=== PATIENT | male | born 1950 | race Caucasian/White ===

== ENCOUNTER 2021-01-09 13:44 | Inpatient (IN) | payer MEDICARE ==
[~2021-01-09] VITALS: Ht 167.6 cm; Wt 79.4 kg
[~2021-01-09 13:44] MED LIST: ALLO300T2 PO; ASPI-1197 PO; FURO20TA4 PO; LEVO125 PO; POTA-202 PO; SIMV-43 PO; TEMA15CA PO
[2021-01-09] MEDS ORDERED: NITROGLYCERIN 1GM OINT 1 INCH/1GM TD ONE ×2 (13:58→14:19)
[2021-01-09] MEDS ORDERED: FUROSEMIDE 40MG VIAL ONE (13:59)
[2021-01-09 14:15] LABS: ABG BASE EXCESS -4.6 mmol/L (-2.0-3.0); ABG OXYGEN SATURATION 99.4 % (95.0-99.0); ABG PCO2 36 mmHg (35-48)
[2021-01-09 14:53] LABS: BASOPHILS % (AUTO) 0.4 % (0.0-5.0); EOSINOPHILS % (AUTO) 0.2 % (0.0-8.0); HEMATOCRIT 46.5 % (42-54); LYMPHOCYTES % (AUTO) 6.3 % (21.0-51.0); MEAN CORPUSCULAR HEMOGLOBIN 29.7 pg (27.0-33.0); MEAN CORPUSCULAR HGB CONC 32.7 g/dL (32.0-36.0); MEAN CORPUSCULAR VOLUME 90.8 fL (79-99); MONOCYTES % (AUTO) 3.1 % (3.0-13.0); NEUTROPHILS % (AUTO) 89.1 % (40.0-77.0); PLATELET COUNT (AUTO) 268 K/uL (130-400); RED BLOOD CELL COUNT(AUTO) 5.12 MIL/uL (4.50-6.20); RED CELL DISTRIBUTION WIDTH 17.4 % (11.0-15.5); WHITE BLOOD COUNT (AUTO) 15.2 K/uL (4.8-10.8)
[2021-01-09 14:59] LABS: POTASSIUM 3.4 mmol/L (3.5-5.1)
[2021-01-09 15:00] LABS: INR 1.11 (0.85-1.15)
[2021-01-09 15:00] LABS: APPEARANCE,URINE Cloudy (CLEAR); BILIRUBIN,URINE Negative (NEGATIVE); COLOR,URINE Dark Yellow (YELLOW); GLUCOSE, URINE (UA) Negative (NEGATIVE); KETONES,URINE Negative (NEGATIVE); LEUKOCYTE ESTERASE ,URINE Small (NEGATIVE); NITRATE,URINE Negative (NEGATIVE); OCCULT BLOOD,URINE Moderate (NEGATIVE); PROTEIN,URINE >=1000 mg/dL (NEGATIVE)
[2021-01-09] MEDS ORDERED: ONDANSETRON 4MG INJ IV PRN (15:00)
[2021-01-09] MEDS ORDERED: ZOLPIDEM TARTRATE 5 MG TAB PO PRN (15:00)
[2021-01-09] MEDS ORDERED: ACETAMINOPHEN 325 MG TAB PO PRN ×3 (15:00→16:45)
[2021-01-09] MEDS ORDERED: MORPHINE 2 MG SYG IV PRN (15:00)
[2021-01-09 15:01] LABS: PARTIAL THROMBOPLASTIN TIME 28.9 SEC (26.3-35.5)
[2021-01-09 15:04] LABS: ALBUMIN 3.1 g/dL (3.5-5.0); BILIRUBIN,TOTAL 0.9 mg/dL (0.2-1.0); TOTAL PROTEIN, SERUM 7.3 g/dL (6.0-8.3)
[2021-01-09 15:12] LABS: BACTERIA,URINE Few /HPF (None Seen); MUCUS,URINE Few LPF (None Seen); SQUAMOUS EPITHELIAL CELL,UR Few /HPF (0-2)
[2021-01-09 15:13] LABS: AMORPHOUS SEDIMENT,UR Moderate /LPF (None Seen)
[2021-01-09 15:13] LABS: TROPONIN I 0.06 ng/mL (0.00-0.06)
[2021-01-09] MEDS ORDERED: CEFTRIAXONE 1G VIAL IVP SCH (15:15)
[2021-01-09 15:19] LABS: B-TYPE NATRIURETIC PEPTIDE 4800 pg/mL (0-100)
[2021-01-09] MEDS ORDERED: MORPHINE 2 MG SYG IVP PRN (16:45)
[2021-01-09] MEDS ORDERED: POTASSIUM CHLORIDE 10% ELIXIR 20 MEQ/15 ML UDCUP PO PRN (16:45)
[2021-01-09] MEDS ORDERED: KCL 20 MEQ ERTAB PO PRN (16:45)
[2021-01-09] MEDS ORDERED: POTASSIUM CHLORIDE 20MEQ/100ML 100 ML IV PRN ×2 (16:45)
[2021-01-09] MEDS ORDERED: CLONIDINE HCL 0.1 MG TABLET PO PRN ×2 (16:45)
[2021-01-09] MEDS ORDERED: LACTULOSE 20 GM/30 ML UDCUP PO PRN (16:45)
[2021-01-09] MEDS ORDERED: MAGNESIUM 2GM PREMIX 50ML 50 ML IV PRN (16:45)
[2021-01-09] MEDS ORDERED: DEXTROSE 50%-WATER 50 ML DISP.SYRIN IV PRN (16:45)
[2021-01-09] MEDS ORDERED: GLUCAGON 1MG KIT 1 MG ML IM PRN (16:45)
[2021-01-09] MEDS ORDERED: LIDOCAINE HCL-MPF 1% 2ML VIAL IV PRN ×2 (16:45)
[2021-01-09] MEDS ORDERED: ONDANSETRON 4MG INJ IVP PRN (16:45)
[2021-01-09] MEDS ORDERED: ACETAMINOPHEN 650 MG SUPPOSITORY RC PRN (16:45)
[2021-01-09 17:46] LABS: TROPONIN I 0.08 ng/mL (0.00-0.06)
[2021-01-09] MEDS: [UNRECOGNIZED DRUG - REMARK] MISC SCH ×2 (18:30→22:30)
[2021-01-09] MEDS: METOPROLOL TARTRATE 25 MG TAB PO SCH (21:00)
[2021-01-09] MEDS ORDERED: ENOXAPARIN SODIUM 40 MG/0.4 ML SYRINGE SQ SCH (21:00)
[2021-01-09] MEDS: ENOXAPARIN SODIUM 80 MG/0.8 ML SQ SCH (21:00)
[2021-01-09] MEDS ORDERED: FAMOTIDINE 20MG VIAL IV SCH (21:00)
[2021-01-09 23:03] LABS: TROPONIN I 0.08 ng/mL (0.00-0.06)
[2021-01-10] VITALS (16 sets, daily range): BP systolic 85–110; BP diastolic 50–71
[2021-01-10] MEDS ORDERED: ENOXAPARIN SODIUM 80 MG/0.8 ML SQ ONE (01:18)
[2021-01-10 05:02] LABS: BASOPHILS % (AUTO) 0.4 % (0.0-5.0); EOSINOPHILS % (AUTO) 0.2 % (0.0-8.0); HEMATOCRIT 40.3 % (42-54); LYMPHOCYTES % (AUTO) 10.3 % (21.0-51.0); MEAN CORPUSCULAR HEMOGLOBIN 29.3 pg (27.0-33.0); MEAN CORPUSCULAR HGB CONC 32.3 g/dL (32.0-36.0); MEAN CORPUSCULAR VOLUME 90.8 fL (79-99); MONOCYTES % (AUTO) 8.4 % (3.0-13.0); NEUTROPHILS % (AUTO) 80.3 % (40.0-77.0); PLATELET COUNT (AUTO) 193 K/uL (130-400); RED BLOOD CELL COUNT(AUTO) 4.44 MIL/uL (4.50-6.20); RED CELL DISTRIBUTION WIDTH 17.2 % (11.0-15.5); WHITE BLOOD COUNT (AUTO) 11.1 K/uL (4.8-10.8)
[2021-01-10 05:22] LABS: B-TYPE NATRIURETIC PEPTIDE 2040 pg/mL (0-100)
[2021-01-10 05:30] LABS: CREATININE 1.8 mg/dL (0.5-1.5); PHOSPHORUS 3.8 mg/dL (2.5-4.9); THYROID STIMULATING HORMONE 1.22 uIU/mL (0.36-3.74); TROPONIN I 0.08 ng/mL (0.00-0.06)
[2021-01-10] MEDS ORDERED: CEFTRIAXONE 1G VIAL ONE (07:48)
[2021-01-10] MEDS ORDERED: METOPROLOL TARTRATE 25 MG TAB ONE (07:48)
[2021-01-10] MEDS: CEFTRIAXONE 1G VIAL IVP SCH (08:59)
[2021-01-10] MEDS: ENOXAPARIN SODIUM 80 MG/0.8 ML SQ SCH ×4 (09:00→20:54)
[2021-01-10] MEDS ORDERED: FUROSEMIDE 20MG VIAL IV SCH (09:00)
[2021-01-10] MEDS: METOPROLOL TARTRATE 25 MG TAB PO SCH (09:00)
[2021-01-10] MEDS ORDERED: ENOXAPARIN SODIUM 40 MG/0.4 ML SYRINGE SQ SCH (09:00)
[2021-01-10] MEDS ORDERED: APIX2.5T PO (09:47)
[2021-01-10] MEDS ORDERED: AMIO200 PO (09:47)
[2021-01-10] MEDS ORDERED: CARV6.25 PO (09:47)
[2021-01-10] MEDS ORDERED: FURO40TA5 PO (09:47)
[2021-01-10] MEDS ORDERED: ALBU2.5V2 NEB (09:47)
[2021-01-10] MEDS: FUROSEMIDE 20MG VIAL IV SCH (15:56)
[2021-01-10] MEDS: AMIODARONE 200 MG TABLET PO SCH (16:56)
[2021-01-10] MEDS: CARVEDILOL 6.25 MG TABLET PO SCH (20:54)
[2021-01-10] MEDS ORDERED: LISINOPRIL 2.5 MG TABLET PO SCH (21:00)
[2021-01-11] MEDS: FUROSEMIDE 20MG VIAL IV SCH ×2 (03:31→15:22)
[2021-01-11 03:57] VITALS: BP 99/58
[2021-01-11 05:14] LABS: CREATININE 1.8 mg/dL (0.5-1.5); POTASSIUM 3.5 mmol/L (3.5-5.1)
[2021-01-11 07:43] VITALS: BP 106/70
[2021-01-11] MEDS: CEFTRIAXONE 1G VIAL IVP SCH (08:00)
[2021-01-11] MEDS: CARVEDILOL 6.25 MG TABLET PO SCH (08:01)
[2021-01-11] MEDS: AMIODARONE 200 MG TABLET PO SCH (08:01)
[2021-01-11] MEDS: ENOXAPARIN SODIUM 80 MG/0.8 ML SQ SCH (08:01)
[2021-01-11 09:02] LABS: CHOLESTEROL 220 mg/dL (<200); HDL CHOLESTEROL 141 mg/dL (29-71); LDL DIRECT 143 mg/dL (0-99); TRIGLYCERIDES 92 mg/dL (30-200)
[2021-01-11 11:43] VITALS: BP 90/51
[2021-01-11] MEDS ORDERED: PERFLUTREN PROTEIN-A MICROSPHR 0.22 MG/ML VIAL IV SCH (15:00)
[2021-01-11] MEDS ORDERED: FURO40TA5 PO (15:04)
[2021-01-11] MEDS ORDERED: LISI2.5T13 PO (15:04)
[2021-01-11] MEDS ORDERED: SPIR25TA6 PO (15:04)
[2021-01-11] MEDS ORDERED: ATOR40TA71 PO (15:07)
[2021-01-11 15:31] VITALS: BP 87/53
[2021-01-11 15:50] VITALS: BP 101/65
[2021-01-11] MEDS ORDERED: ATORVASTATIN 40 MG TABLET PO SCH (21:00)
== END 2021-01-11 17:00 | disposition home or self-care (01) | DRG 291 ==
LOC: EDH 13:44 → INTOOBSV 14:47 → EDHIP 14:47 → OBSVTOIN 14:47 → 2DH 01-10 08:13 → 4CH 01-10 18:18
PROVIDERS: ADMIT Internal Medicine Critical Care Medicine; ATTEND Internal Medicine Critical Care Medicine
PROC: 5A09357 Assistance with Respiratory Ventilation, Less than 24 Consecutive Hours, Continuous Positive Airway Pressure (ICD-10-PCS; principal; 2021-01-09)
PROC: 5A09357 Assistance with Respiratory Ventilation, Less than 24 Consecutive Hours, Continuous Positive Airway Pressure (ICD-10-PCS; 2021-01-10)
DX: I13.0 Hypertensive heart and chronic kidney disease with heart failure and stage 1 through stage 4 chronic kidney disease, or unspecified chronic kidney disease (principal); J96.21 Acute and chronic respiratory failure with hypoxia; I50.23 Acute on chronic systolic (congestive) heart failure; N17.9 Acute kidney failure, unspecified; N39.0 Urinary tract infection, site not specified; E03.9 Hypothyroidism, unspecified; I42.0 Dilated cardiomyopathy; E11.22 Type 2 diabetes mellitus with diabetic chronic kidney disease; E78.5 Hyperlipidemia, unspecified; E78.00 Pure hypercholesterolemia, unspecified; I48.91 Unspecified atrial fibrillation; I51.3 Intracardiac thrombosis, not elsewhere classified; N18.30 Chronic kidney disease, stage 3 unspecified; Z79.01 Long term (current) use of anticoagulants; Z79.82 Long term (current) use of aspirin; Z79.899 Other long term (current) drug therapy; Z95.810 Presence of automatic (implantable) cardiac defibrillator
CPT/HCPCS: 36415; 36600; 71045; 71250; 80048; 80053; 80061; 81001; 82550; 82803; 82948; 83605; 83735; 83874; 83880; 84100; 84443; 84484; 85025; 85378; 85610; 85730; 87040; 87088; 93005; 93356; 94660; C8929; G0378; J0696; J1650; J1940